=== PATIENT | male | born 2005 | race Caucasian/White ===

== ENCOUNTER 2024-01-06 12:11 | Emergency (ER) | payer OTHER, SELFPAY ==
[2024-01-06 12:15] VITALS: BP 141/84
[2024-01-06 12:43] LABS: COVID-19 Antigen Negative (Negative)
--- NOTE | 2024-01-06 13:19 | ED.GENMED ---
History of Present Illness
General
Chief Complaint: Cold/Flu/URI Symptoms
Source: patient
Exam Limitations: none
Time Seen by Provider: 01/06/24 12:51
Travel History
Have you had any contact with someone who has COVID-19?: No
Do you have any symptoms of coronavirus? Fever > 100 degrees, chills, cough, shortness of breath, sore throat, loss of taste or smell, muscle aches, or headache?: No
History of Present Illness
History of Present Illness:
18-year-old male congestion facial fullness some vague headache feels like crap per the patient. Started 2 to 3 days ago. Mild cough. No shortness of breath no high fever. Bit by tick 4 days ago. Behind the left ear. Had to remove the tick.
Past History
Past History
ED Past Medical History: Asthma
ED Past Surgical History: Tonsilectomy
Social History
Tobacco: Vaping (and smokes Cig)
Review of Systems
Review of Systems
All Other Systems: Not applicable
Respiratory: Reports cough
Cardiac: Denies chest pain
Phy Exam
Physical Exam
Physical Exam:
GENERAL: Alert and oriented in no apparent distress
EYE: Orbits normal.
NECK: Supple, nontender
ENT: Pharynx without erythema. Boggy nasal turbinates. Nasal congestion
CARDIAC: Regular rate and rhythm without any obvious murmurs.
LUNGS: Clear breath sounds,normal
ABDOMEN: Soft, without focal tenderness or distention
NEUROLOGICAL: Alert and oriented , grossly non-focal
SKIN: Warm and dry, no rash or lesion, no discoloration, skin intact. No rash at the site of the tick bite behind the left ear
MUSCULOSKELETAL: No edema,no deformity.Good color
PSYCH: Normal and appropriate interaction.
Course
Orders/Labs/Results
Orders:
Orders
01/06/24 12:18
COVID-19 Antigen Urgent
Source: Nasal Swab
Influenza A+B Rapid Molecular Urgent
LEYDA Source: Nasal Swab
Specimen Description:
01/06/24 13:30
Lyme Progressive Urgent
Vital Signs
Initial and Last Documented VS:
Initial Vital Signs
Temp Pulse Resp BP Pulse Ox
98.2 F 88 17 141/84 97
01/06/24 12:15 01/06/24 12:15 01/06/24 12:15 01/06/24 12:15 01/06/24 12:15
Last Documented Vital Signs
Temp Pulse Resp BP Pulse Ox
98.2 F 88 17 141/84 97
01/06/24 12:15 01/06/24 12:15 01/06/24 12:15 01/06/24 12:15 01/06/24 12:15
MDM/Problems Addressed
Differential Diagnosis Includes:
Clinically this is a sinusitis/URI. Doubt this has anything to do with the tick bite. We will cover with doxycycline and send a Lyme titer however.
*Pulse Oximetry
Patient hypoxic: no
*Critical Care Note
Total Time (30-74mins, 75-104mins- exclusive of procedures): Not Applicable
ED Attending Note
-
Portions of this chart may have been created with voice recognition software.� Occasional wrong word or��sound alike� substitutions may have occurred due to the inherent limitations of voice recognition software.
Discharge Plan
Departure
Patient Disposition: Home (Routine Discharge)
Date of Disposition: 01/06/24
Time of Disposition: 13:22
Patient with high blood pressure during this ER visit?: Yes
Discharge Problem:
URI/sinusitis, Recent tick bite
Instructions: Sinusitis, Adult ED, BLOOD PRESSURE
Prescriptions:
New
doxycycline hyclate 100 mg capsule
100 mg PO BID 10 Days Qty: 20 0RF
No Action
albuterol sulfate 1 PUFF HFA aerosol inhaler
2 puff inhalation R Q4HPRN PRN (Reason: Wheezing, Sob) Qty: 1 0RF
Activity Restrictions/Additional Instructions:
Your Lyme titer should be back in 3 to 4 days.
Finish the antibiotics
Tylenol or Motrin for pain
Stay well-hydrated
Get checked by your primary physician if not significantly improved in 3 to 4 days
Interventions
Interventions:
*Risk Screen - Suicide Last Done: 01/06/24 12:15
*General Assessment Last Done: 01/06/24 12:15
*Neglect/Abuse Screening Last Done: 01/06/24 12:15
ED- Fall Risk Assessment Last Done: 01/06/24 13:34
*ED COVID-19 Vaccine History Last Done: 01/06/24 12:15
*Nursing Disposition Last Done: 01/06/24 13:34
ED- Pulmonary Assessment Last Done: 01/06/24 13:32
Discharge Date and Time
Discharge Date/Time: 01/06/24 13:35
Print Language: BENGALI
[2024-01-07 16:32] LABS: Lyme Antibody Screen, EIA Negative (Negative)
== END 2024-01-06 13:35 | disposition home or self-care (01) ==
LOC: EMR 12:11
PROVIDERS: Emergency Medicine; EMERGENCY PHYSICIAN Emergency Medicine
DX: J32.9 Chronic sinusitis, unspecified (principal); J45.909 Unspecified asthma, uncomplicated; F17.290 Nicotine dependence, other tobacco product, uncomplicated
CPT/HCPCS: 99283; 86618; 87502; 87811

== ENCOUNTER 2024-08-15 08:56 | Emergency (ER) | payer OTHER, SELFPAY ==
[2024-08-15 09:00] VITALS: BP 115/75
--- NOTE | 2024-08-15 09:48 | ED.GENMED ---
History of Present Illness
General
Chief Complaint: Eye Problems
Source: patient
Time Seen by Provider: 08/15/24 09:30
History of Present Illness
History of Present Illness:
19-year-old male with past medical history of asthma presenting to the emergency department for evaluation after he was working on a project yesterday at home when he felt a possible foreign body go into his left eye and now with a continued foreign
body sensation to the left eye with increased tearing and mild photophobia. No other injuries were sustained. Patient does not wear glasses or contact lenses. Did not take anything for pain prior to arrival.
Past History
Past History
ED Past Medical History: Asthma
ED Past Surgical History: Tonsilectomy
Social History
Tobacco: Vaping (and smokes Cig)
Alcohol: Occasional
Drug: None
Personal: Single
Living: with family
Review of Systems
Review of Systems
All Other Systems: ROS reviewed and negative except as documented in HPI and ROS
Phy Exam
Physical Exam
Physical Exam:
GENERAL: Alert , in no apparent distress
EYE: conjunctiva mildly injected left eye with increased tearing, no visualized FB
Fluorescein stain: small uptake measuring ~1mm at 5 o'clock position. no FB
Visual Acuity: Right Eye 20/25, Left Eye 20/25, Both Eyes 20/25
Head: Normocephalic atraumatic
NECK: Supple
ENT: mmm.
LUNGS: no acute respiratory distress
NEUROLOGICAL: Alert and oriented
SKIN: Warm and dry, skin intact.
MUSCULOSKELETAL: well perfused.
PSYCH: Normal and appropriate interaction.
Scores
Heart Failure Risk
Heart Failure Risk Score: Not Applicable
Heart Score for Chest Pain Patients
STEMI patient?: Not applicable
Withdrawal Assessment of Alcohol
Withdrawal Assessment Completed?: Not applicable
Course
Vital Signs
Initial and Last Documented VS:
Initial Vital Signs
Temp Pulse Resp BP Pulse Ox
97.5 F 84 16 115/75 98
08/15/24 09:00 08/15/24 09:00 08/15/24 09:00 08/15/24 09:00 08/15/24 09:00
Last Documented Vital Signs
Temp Pulse Resp BP Pulse Ox
97.5 F 84 16 115/75 98
08/15/24 09:00 08/15/24 09:00 08/15/24 09:00 08/15/24 09:00 08/15/24 09:00
MDM/Problems Addressed
Differential Diagnosis Includes:
Corneal abrasion, retained foreign body, iritis, conjunctivitis
MDM/Problems Addressed:
19-year-old male presenting emergency department for evaluation after suspected corneal abrasion versus foreign body while working at home yesterday. Exam is most consistent with a corneal abrasion without any retained foreign body. I attempted
slit-lamp examination however the slit-lamp within the emergency department is currently not functioning and unable to be used. Will initiate topical antibiotic drops. NSAIDs/Tylenol as needed for pain. Information for ophthalmology follow-up
provided. Stable for discharge home otherwise.
*Pulse Oximetry
Patient hypoxic: no
*Critical Care Note
Total Time (30-74mins, 75-104mins- exclusive of procedures): Not Applicable
ED Attending Note
-
Portions of this chart may have been created with voice recognition software.� Occasional wrong word or��sound alike� substitutions may have occurred due to the inherent limitations of voice recognition software.
Discharge Plan
Departure
Patient Disposition: Home (Routine Discharge)
Date of Disposition: 08/15/24
Time of Disposition: 09:48
Patient with high blood pressure during this ER visit?: No
Discharge Problem:
Injury of conjunctiva and corneal abrasion of left eye w/o FB
Instructions: Corneal Abrasion (DC)
Prescriptions:
New
ofloxacin [Ocuflox] 0.3 % drops
2 drp ophthalmic (eye) QID 5 Days Qty: 5 0RF
No Action
albuterol sulfate 1 PUFF HFA aerosol inhaler
2 puff inhalation R Q4HPRN PRN (Reason: Wheezing, Sob) Qty: 1 0RF
doxycycline hyclate 100 mg capsule
100 mg PO BID 10 Days Qty: 20 0RF
Referrals:
Chris Gamez MD [Active] - (Ophthalmology - Call as needed)
UNKNOWN - PT DOES,NOT KNOW [Family Provider] -
Interventions
Interventions:
*Risk Screen - Suicide Last Done: 08/15/24 09:00
*Neglect/Abuse Screening Last Done: 08/15/24 09:00
*Nursing Disposition Last Done: 08/15/24 09:57
Discharge Date and Time
Print Language: OMANI
== END 2024-08-15 09:57 | disposition home or self-care (01) ==
LOC: EMR 08:56
PROVIDERS: EMERGENCY PHYSICIAN Emergency Medicine
DX: S05.02XA Injury of conjunctiva and corneal abrasion without foreign body, left eye, initial encounter (principal); X58.XXXA Exposure to other specified factors, initial encounter; J45.909 Unspecified asthma, uncomplicated; F17.290 Nicotine dependence, other tobacco product, uncomplicated
CPT/HCPCS: 99282